=== PATIENT | female | born 1955 | race Caucasian/White ===

== ENCOUNTER 2018-10-31 22:03 | Emergency (ER) | payer BC, OTHER ==
[~2018-10-31] VITALS: Ht 165.1 cm; Wt 73.5 kg
[~2018-10-31 22:03] MED LIST: FIORICET 50-301 EACH PO; NOHOMEMEDICATIONS; TYLENOL325 MG PO
[2018-11-01] MEDS ORDERED: ACYCLOVIR 400400 MG PO (00:06)
[2018-11-01] MEDS ORDERED: SENNA-DOCUSATE1 EAC1 PO (00:06)
[2018-11-01] MEDS ORDERED: ERYTHROMYCIN E3.5 G3 OPHTHALMIC (00:06)
[2018-11-01] MEDS ORDERED: NORCO 5-325 TA1 EACH PO (00:06)
[2018-11-01 00:29] VITALS: BP 140/84
== END 2018-11-01 00:29 | disposition home or self-care (01) ==
LOC: ER 22:03
DX: B02.39 Other herpes zoster eye disease (principal); J45.909 Unspecified asthma, uncomplicated; Z88.8 Allergy status to other drugs, medicaments and biological substances; Z90.49 Acquired absence of other specified parts of digestive tract; Z90.89 Acquired absence of other organs